=== PATIENT | male | born 1950 | race Caucasian/White ===

== ENCOUNTER 2017-02-28 09:16 | Emergency (ER) | payer BC ==
[~2017-02-28] VITALS: Ht 182.9 cm; Wt 86.4 kg
[~2017-02-28 09:16] MED LIST: AMBIEN5 MG PO; CELEBREX50 MG PO; COUMADIN,JANTO7.5 MG PO; LIPITOR5 MG PO
[2017-02-28 11:34] LABS: INTER. NORMALIZED RATIO 2.4
[2017-02-28 12:31] VITALS: BP 174/89
== END 2017-02-28 12:31 | disposition home or self-care (01) ==
LOC: EME 09:16
PROVIDERS: Emergency Medicine
DX: H11.31 Conjunctival hemorrhage, right eye (principal); R23.3 Spontaneous ecchymoses; Z95.0 Presence of cardiac pacemaker; Z95.2 Presence of prosthetic heart valve; Z79.01 Long term (current) use of anticoagulants
CPT/HCPCS: 85610; 99281; 99284